=== PATIENT | female | born 1980 | race Two or more races ===

== ENCOUNTER 2021-07-29 17:33 | Emergency (ER) | payer MEDICAID, OTHER ==
[~2021-07-29] VITALS: Ht 157.5 cm; Wt 52.2 kg
[2021-07-29 17:33] VITALS: BP 124/82
== END 2021-07-30 03:08 | disposition left against medical advice (07) ==
LOC: ER 17:33
DX: U07.1 COVID-19 (principal); J02.9 Acute pharyngitis, unspecified; Z53.21 Procedure and treatment not carried out due to patient leaving prior to being seen by health care provider
CPT/HCPCS: 36415; 87426